=== PATIENT | female | born 1960 | race Caucasian/White ===

== ENCOUNTER → 2017-02-21 | Outpatient (CLI) | payer MEDICAID ==
--- NOTE | 2017-02-22 09:23 | MM ---
Reason for exam: screening (asymptomatic). Last mammogram was performed 2 years and 2 months ago. History: Patient is postmenopausal and is nulliparous. Benign US right guided VAD of the right breast, July 21, 2010. Took hormonal contraceptives for 7 years beginning at age 19. Physical Findings: A clinical breast exam by your physician is recommended on an annual basis and results should be correlated with mammographic findings. MG 3D Screening Mammo W/Cad Bilateral CC and MLO view(s) were taken. Prior study comparison: December 31, 2014, bilateral MG 3d screening mammo w/cad. October 05, 2013, bilateral MG screening mammo w CAD. The breast tissue is heterogeneously dense. This may lower the sensitivity of mammography. There is no discrete abnormality. No significant changes when compared with prior studies. ASSESSMENT: Negative, BI-RAD 1 RECOMMENDATION: Routine screening mammogram of both breasts in 1 year.
== END | disposition home or self-care (01) ==
LOC: RADMAMWWP 07:35
PROVIDERS: ATTEND Family Medicine
DX: Z12.31 Encounter for screening mammogram for malignant neoplasm of breast (principal)
CPT/HCPCS: 77063; 77067

== ENCOUNTER → 2018-11-22 | Outpatient (CLI) | payer MEDICAID ==
--- NOTE | 2018-11-22 09:48 | MM ---
Reason for exam: additional evaluation requested from prior study. Last mammogram was performed 1 year and 9 months ago. History: Patient is postmenopausal and is nulliparous. Benign US right guided VAD of the right breast, July 21, 2010. Took hormonal contraceptives for 7 years beginning at age 19. Physical Findings: Nurse did not find any significant physical abnormalities on exam. MG Diagnostic Mammo w CAD [place] Bilateral CC and MLO view(s) were taken. Prior study comparison: February 21, 2017, bilateral MG 3d screening mammo w/cad. December 31, 2014, bilateral MG 3d screening mammo w/cad. The breast tissue is heterogeneously dense. This may lower the sensitivity of mammography. Previous mammotome biopsy in the right breast. No significant new findings when compared with previous films. These results were verbally communicated with the patient and result sheet given to the patient on 11/22/18. ASSESSMENT: Benign, BI-RAD 2 RECOMMENDATION: Routine screening mammogram of both breasts in 1 year. Manage on a clinical basis with regard to pain/palpable.
[2018-11-22 10:00] LABS: Basophils # (A) 0.1 k/uL (0-0.2); Basophils % (A) 1 %; Eosinophils # (A) 0.3 k/uL (0-0.7); Eosinophils % (A) 5 %; HCT 48.9 % (34.0-46.0); HGB 15.5 gm/dL (11.4-16.0); Lymphocytes # (A) 1.7 k/uL (1.0-4.8); Lymphocytes % (A) 28 %; MCH 29.4 pg (25.0-35.0); MCHC 31.6 g/dL (31.0-37.0); MCV 92.9 fL (80.0-100.0); Mean Platelet Volume 8.3; Monocytes # (A) 0.3 k/uL (0-1.0); Monocytes % (A) 6 %; Neutrophils # (A) 3.6 k/uL (1.3-7.7); Neutrophils % (A) 59 %; Platelet Count 232 k/uL (150-450); RBC 5.26 m/uL (3.80-5.40); RDW 13.4 % (11.5-15.5); WBC 6.1 k/uL (3.8-10.6)
[2018-11-22 10:09] LABS: ALT 30 U/L (9-52); AST 21 U/L (14-36); African American GFR (CKD) >90 (>60 ml/min/1.73 sqM); Albumin 4.4 g/dL (3.5-5.0); Alkaline Phosphatase 82 U/L (38-126); Anion Gap 7 mmol/L; Blood Urea Nitrogen 16 mg/dL (7-17); Calcium 9.9 mg/dL (8.4-10.2); Carbon Dioxide 29 mmol/L (22-30); Chloride 105 mmol/L (98-107); Cholesterol 213 mg/dL (<200); Glucose 102 mg/dL (74-99); HDL Cholesterol 63 mg/dL (40-60); LDL Cholesterol,Calculated 136 mg/dL (0-99); Non-African American GFR(CKD) 90 (>60 ml/min/1.73 sqM); Sodium 141 mmol/L (137-145); Total Bilirubin 0.4 mg/dL (0.2-1.3); Total Protein 7.4 g/dL (6.3-8.2); Triglycerides 69 mg/dL (<150)
[2018-11-22 10:26] LABS: T4, Free (Free Thyroxine) 0.95 ng/dL (0.78-2.19)
== END | disposition home or self-care (01) ==
LOC: RADMAMWWP 08:09
PROVIDERS: ATTEND Family Medicine
DX: N63.10 Unspecified lump in the right breast, unspecified quadrant (principal); N63.20 Unspecified lump in the left breast, unspecified quadrant; N64.4 Mastodynia; E78.00 Pure hypercholesterolemia, unspecified; Z00.00 Encounter for general adult medical examination without abnormal findings
CPT/HCPCS: 77066; 80053; 80061; 84439; 84443; 85025

== ENCOUNTER → 2018-12-06 | Outpatient (CLI) | payer MEDICAID ==
--- NOTE | 2018-12-06 15:50 | CTL ---
EXAMINATION TYPE: CT Low Dose Lung DATE OF EXAM ORDERED: 12/06/2018 HISTORY: Personal history of tobacco use. Lung cancer screening CT DLP: 54.[address] CTDI: 1.5 mGy Automated exposure control for dose reduction was used. SCREENING VISIT: Initial COMPARISON: None TECHNIQUE: Low dose computed tomography scan was performed through the chest at 1 mm thick sections a nd reconstructed images in the coronal plane at [address] DIAGNOSTIC QUALITY: Satisfactory FINDINGS: LUNG NODULES: None. LUNGS: COPD: Severity: Normal Fibrosis: Severity: Normal Lymph nodes: Normal Other findings: Normal RIGHT PLEURAL SPACE: Effusion: Normal Calcification: Normal Thickening: Normal Pneumothorax: Normal LEFT PLEURAL SPACE: Effusion: Normal Calcification: Normal Thickening: Normal Pneumothorax: Normal HEART: Heart Size: Normal Coronary calcification: None Pericardial effusion: None OTHER FINDINGS: Upper abdomen: Normal Bony thorax: Supraclavicular region: Normal Other: Ascending thoracic aorta at the level the main pulmonary artery measures 3.2 cm. The main pul monary artery at the bifurcation measures 2.3 cm. IMPRESSION: Negative CT screening chest FOLLOW UP CT CHEST RECOMMENDATION: Screening low-dose CT chest per protocol in [address] LUNG RAD: 1
== END | disposition home or self-care (01) ==
LOC: RADCTMAIN 15:00
PROVIDERS: ATTEND Family Medicine
DX: Z12.2 Encounter for screening for malignant neoplasm of respiratory organs (principal); Z87.891 Personal history of nicotine dependence

== ENCOUNTER → 2020-09-30 | Outpatient (CLI) | payer MEDICAID ==
[2020-09-30 16:03] LABS: Basophils # (A) 0.05 X 10*3/uL (0.00-0.10); Basophils % (A) 0.9 %; Eosinophils % (A) 7.3 %; HCT 48.5 % (37.2-46.3); HGB 15.3 g/dL (12.0-15.0); Lymphocytes # (A) 1.48 X 10*3/uL (0.90-5.00); Lymphocytes % (A) 26.9 %; MCH 29.4 pg (27.0-32.0); MCHC 31.5 g/dL (32.0-37.0); MCV 93.3 fL (80.0-97.0); Mean Platelet Volume 11.9 fL (9.5-12.2); Monocytes # (A) 0.55 X 10*3/uL (0.20-1.00); Neutrophils % (A) 54.5 %; Platelet Count 267 X 10*3/uL (140-440); RDW 13.5 % (11.5-14.5)
[2020-09-30 20:12] LABS: African American GFR (CKD) 94.2 (60.0-200.0); Albumin 4.4 g/dL (3.80-4.90); Albumin/Globulin Ratio 1.83 (1.60-3.17); Anion Gap 8.7 mmol/L (4.00-12.00); BUN/Creat Ratio 18.75 Ratio (12.00-20.00); Calcium 9.5 mg/dL (8.7-10.3); Carbon Dioxide 25.3 mmol/L (21.6-31.8); Chol/HDL Ratio 4.09; Globulin 2.4 g/dL (1.6-3.3); Magnesium 1.8 mg/dL (1.5-2.4); Non-African American GFR(CKD) 81.3 (60.0-200.0); Potassium 4.5 mmol/L (3.5-5.5); Total Bilirubin 0.4 mg/dL (0.3-1.2); Total Protein 6.8 g/dL (6.2-8.2)
[2020-09-30 20:22] LABS: T4, Free (Free Thyroxine) 0.7 ng/dL (0.80-1.80)
== END | disposition home or self-care (01) ==
LOC: LABWHC1 09:39
PROVIDERS: ATTEND Nurse Practitioner Family
DX: Z00.00 Encounter for general adult medical examination without abnormal findings (principal); E55.9 Vitamin D deficiency, unspecified; Z87.891 Personal history of nicotine dependence
CPT/HCPCS: 36415; 80053; 80061; 82306; 83735; 84439; 84443; 85025

== ENCOUNTER → 2021-01-26 | Outpatient (CLI) | payer MEDICAID ==
--- NOTE | 2021-01-26 09:28 | MM ---
Reason for exam: screening (asymptomatic). Last mammogram was performed 2 years and 2 months ago. History: Patient is postmenopausal and is nulliparous. Benign US right guided VAD of the right breast, July 21, 2010. Took hormonal contraceptives for 7 years beginning at age 19. Physical Findings: A clinical breast exam by your physician is recommended on an annual basis and results should be correlated with mammographic findings. MG 3D Screening Mammo W/Cad Bilateral CC and MLO view(s) were taken. Prior study comparison: November 22, 2018, bilateral MG diagnostic mammo w CAD [place]. February 21, 2017, bilateral MG 3d screening mammo w/cad. The breast tissue is heterogeneously dense. This may lower the sensitivity of mammography. Previous mammotome biopsy in the right breast. There is no discrete abnormality. ASSESSMENT: Benign, BI-RAD 2 RECOMMENDATION: Routine screening mammogram of both breasts in 1 year.
== END | disposition home or self-care (01) ==
LOC: RADMAMWWP 07:12
PROVIDERS: ATTEND Obstetrics & Gynecology
DX: Z12.31 Encounter for screening mammogram for malignant neoplasm of breast (principal); Z78.0 Asymptomatic menopausal state
CPT/HCPCS: 77063; 77067

== ENCOUNTER → 2021-01-27 | Outpatient (CLI) | payer MEDICAID, OTHER | END | disposition home or self-care (01) | LOC: LABWHC1 08:53 | PROVIDERS: ATTEND Emergency Medicine | DX: Z20.822 Contact with and (suspected) exposure to COVID-19 (principal) | CPT/HCPCS: 87635 ==

== ENCOUNTER → 2021-01-28 | Outpatient (CLI) | payer MEDICAID, OTHER | END | disposition home or self-care (01) | LOC: LABWHC1 08:59 | PROVIDERS: ATTEND Emergency Medicine | DX: Z20.822 Contact with and (suspected) exposure to COVID-19 (principal) | CPT/HCPCS: 87635 ==

== ENCOUNTER → 2021-02-07 | Outpatient (CLI) | payer MEDICAID, OTHER | END | disposition home or self-care (01) | LOC: LABWHC1 15:26 | PROVIDERS: ATTEND Emergency Medicine | DX: U07.1 COVID-19 (principal) | CPT/HCPCS: 87635 ==

== ENCOUNTER 2021-02-17 08:29 | Day surgery (SDC) | payer MEDICAID ==
[2021-02-12 15:01] VITALS: BMI 20.3
[~2021-02-17 08:29] MED LIST: LACTATED RINGERS 1,000 ML IV SCH; LIDOCAINE 1% (10MG/ML) FOR IV START INTRADERMA PRN
[2021-02-17 08:44] VITALS: TEMP 97.9
[2021-02-17] MEDS ORDERED: LACTATED RINGERS 1,000 ML IV ONE (08:51)
[2021-02-17] MEDS ORDERED: LIDOCAINE 1% INJ 10MG/ML (20 ML MDV) ONE (09:14)
[2021-02-17] MEDS ORDERED: PROPOFOL 10 MG/ML 20 ML VIAL IV ONE (09:14)
--- NOTE | 2021-02-17 09:18 | P.GSHP ---
History of Present Illness H&P Date: 02/17/21 Chief Complaint: Colon cancer screening 60-year-old female here today for colonoscopy. Last colonoscopy 5 years ago. No bowel complaints. No rectal bleeding. Family history of colon cancer in her mother and her maternal grandmother Past Medical History Past Medical History: GERD/Reflux, Osteoarthritis (OA) Additional Past Medical History / Comment(s): hemorrhoids History of Any Multi-Drug Resistant Organisms: None Reported Past Surgical History: Adenoidectomy, Tonsillectomy Additional Past Surgical History / Comment(s): 2008 uterine ablation, colonoscopy Past Anesthesia/Blood Transfusion Reactions: No Reported Reaction Past Psychological History: No Psychological Hx Reported Smoking Status: Former smoker Past Alcohol Use History: Rare Additional Past Alcohol Use History / Comment(s): quit smoking 1 1/2 years ago, hx of 1ppd, smoked off and on. Past Drug Use History: None Reported - Past Family History Father Family Medical History: COPD, Hearing Disorder / Deafness, Rheumatoid Arthritis (RA) Mother Family Medical History: Cancer, COPD, GERD/Reflux, Hyperlipidemia Additional Family Medical History / Comment(s): Colon CA Medications and Allergies Home Medications Medication Instructions Recorded Confirmed Type Cholecalciferol [Vitamin D3 (125 125 mcg PO DAILY 02/12/21 02/12/21 History Mcg = 5000 Iu)] Ibuprofen [Motrin Ib] 400 mg PO Q8H 02/12/21 02/12/21 History Allergies Allergy/AdvReac Type Severity Reaction Status Date / Time neomycin Allergy Rash/Hives Verified 02/12/21 14:54 Surgical - Exam Vital Signs Temp Pulse Resp BP Pulse Ox 97.9 F 78 18 132/74 98 02/17/21 08:43 02/17/21 08:43 02/17/21 08:43 02/17/21 08:43 02/17/21 08:43 Physical exam: General: Well-developed, well-nourished HEENT: Normocephalic, sclerae nonicteric Abdomen: Nontender, nondistended Extremities: No edema Neuro: Alert and oriented Assessment and Plan (1) Colon cancer screening Narrative/Plan: Will proceed with colonoscopy Current Visit: Yes Status: Acute Code(s): Z12.11 - ENCOUNTER FOR SCREENING FOR MALIGNANT NEOPLASM OF COLON SNOMED Code(s): 851241823
--- NOTE | 2021-02-17 09:34 | P.PCN ---
Date of Procedure: 02/17/21 Procedure(s) Performed: PREOPERATIVE DIAGNOSIS: Colon cancer screening, family history of colon cancer POSTOPERATIVE DIAGNOSIS: Normal exam PROCEDURE: Colonoscopy ANESTHESIA: MAC SURGEON: Adrian Yip M.D. SPECIMENS: None ENDOSCOPIC PROCEDURE: The patient was placed on the endoscopy table in the left decubitus position. The Olympus colonoscope was inserted into the anus and passed under direct visualization to the base of the cecum. The appendiceal orifice was visualized. From that point the scope was slowly withdrawn inspecting all surfaces carefully. There were no neoplastic inflammatory or polypoid lesions throughout the cecum, ascending, transverse, descending, sigmoid and rectum. There was no visible diverticulosis noted. Digital rectal examination was normal. The patient was taken to the recovery room in stable condition per anesthesia guidelines. RECOMMENDATIONS: Resume diet. Follow-up colonoscopy 5 years
[2021-02-17 10:02] VITALS: RESP 16
[2021-02-17 10:03] VITALS: BP 130/87; PULSE 60
== END 2021-02-17 10:30 | disposition home or self-care (01) ==
LOC: ORWHC2ENDO 08:29
PROVIDERS: ATTEND Surgery
DX: Z12.11 Encounter for screening for malignant neoplasm of colon (principal); Z80.0 Family history of malignant neoplasm of digestive organs; K21.9 Gastro-esophageal reflux disease without esophagitis; M19.90 Unspecified osteoarthritis, unspecified site; Z87.891 Personal history of nicotine dependence; Z88.1 Allergy status to other antibiotic agents; Z90.89 Acquired absence of other organs; Z90.49 Acquired absence of other specified parts of digestive tract; Z98.890 Other specified postprocedural states; Z82.5 Family history of asthma and other chronic lower respiratory diseases; Z82.61 Family history of arthritis; Z83.79 Family history of other diseases of the digestive system; Z83.438 Family history of other disorder of lipoprotein metabolism and other lipidemia
CPT/HCPCS: J2001; J2704; G0105; 45378

== ENCOUNTER → 2021-11-09 | Outpatient (CLI) | payer MEDICAID ==
[2021-11-09 15:56] LABS: Basophils # (A) 0.06 X 10*3/uL (0.00-0.10); Eosinophils # (A) 0.38 X 10*3/uL (0.04-0.35); Eosinophils % (A) 6.2 %; HCT 47.9 % (37.2-46.3); HGB 15.7 g/dL (12.0-15.0); Immature Grans, Automated 0.3 %; Lymphocytes # (A) 1.51 X 10*3/uL (0.90-5.00); Lymphocytes % (A) 24.7 %; MCH 30.4 pg (27.0-32.0); MCHC 32.8 g/dL (32.0-37.0); MCV 92.8 fL (80.0-97.0); Mean Platelet Volume 12.1 fL (9.5-12.2); Monocytes # (A) 0.46 X 10*3/uL (0.20-1.00); Monocytes % (A) 7.5 %; NRBC Per 100 WBC 0 /100 WBCS (0.0-0.0); Neutrophils # (A) 3.68 X 10*3/uL (1.80-7.70); Neutrophils % (A) 60.3 %; Platelet Count 248 X 10*3/uL (140-440); RBC 5.16 X 10*6/uL (4.10-5.20); RDW 13.8 % (11.5-14.5); WBC 6.11 X 10*3/uL (4.50-10.00)
[2021-11-09 16:20] LABS: ALT 20 U/L (8-44); AST 21 U/L (13-35); Albumin 4.4 g/dL (3.8-4.9); Albumin/Globulin Ratio 1.79 (1.60-3.17); Alkaline Phosphatase 91 U/L (41-126); Blood Urea Nitrogen 10.6 mg/dL (9.0-27.0); Calcium 9.5 mg/dL (8.7-10.3); Carbon Dioxide 25.4 mmol/L (20.0-27.5); Chloride 104 mmol/L (96-109); Chol/HDL Ratio 4.07 Ratio; Globulin 2.5 g/dL (1.6-3.3); Glucose 89 mg/dL (70-110); LDL Cholesterol,Calculated 145.1 mg/dL (0.0-131.0); Non-African American GFR(CKD) 92.3 (60.0-200.0); Potassium 4.2 mmol/L (3.5-5.5); Sodium 140 mmol/L (135-145); Total Protein 6.8 g/dL (6.2-8.2)
== END | disposition home or self-care (01) ==
LOC: LABWHC1 07:52
PROVIDERS: ATTEND Nurse Practitioner Family
DX: Z00.00 Encounter for general adult medical examination without abnormal findings (principal); K59.04 Chronic idiopathic constipation; F17.200 Nicotine dependence, unspecified, uncomplicated; Z82.49 Family history of ischemic heart disease and other diseases of the circulatory system; R22.1 Localized swelling, mass and lump, neck; E55.9 Vitamin D deficiency, unspecified
CPT/HCPCS: 36415; 80053; 80061; 82306; 84439; 84443; 85025; 93005

== ENCOUNTER → 2021-11-24 | Outpatient (CLI) | payer MEDICAID ==
--- NOTE | 2021-11-24 14:44 | US ---
EXAMINATION TYPE: US st tissue head/neck DATE OF EXAM: 11/24/2021 COMPARISON: 12/26/2014 CLINICAL HISTORY: 61-year-old female R22.1 Lump in neck. Patient feels swelling/palpable just superio r to gutierrez apple. TECHNIQUE: Plastic And Reconstructive Surgeon notes: Scanning was performed over upper neck where patient feels swelling nadeem und gutierrez apple. Imaging was also performed slightly lateral in the submandibular space. Additional s deborah was performed inferiorly over thyroid area. FINDINGS: Plastic And Reconstructive Surgeon notes: No definite abnormality noted at any of these locations. IMPRESSION: Scanning targeted to the patient's palpable site, anterior neck just above and around the anterosepta l, and the submandibular space bilaterally, and inferior thyroid gland area. No discrete sonographic abnormality of the superficial soft tissues is identified. Further clinical follow-up recommended. If any persisting or enlarging palpable abnormality, consider contrast-enhanced CT of the neck.
== END | disposition home or self-care (01) ==
LOC: RADUSWWP 12:12
PROVIDERS: ATTEND Family Medicine
DX: R22.1 Localized swelling, mass and lump, neck (principal)
CPT/HCPCS: 76536

== ENCOUNTER → 2022-01-27 | Outpatient (CLI) | payer MEDICAID ==
--- NOTE | 2022-01-27 18:24 | MM ---
Reason for Exam: Screening (asymptomatic). Last screening mammogram was performed 12 month(s) ago. Patient History: Menarche at age 15. Patient has no children. Postmenopausal. Hormonal Contraceptives for 7 years from age 19 until age 27. 07/21/2010, Benign Core Biopsy on the right side. Risk Values: Margo 5 year model risk: 1.8%. NCI Lifetime model risk: 9.8%. Prior Study Comparison: 02/21/2017 Bilateral Screening Mammogram, [facility]. 11/22/2018 Bilateral Diagnostic Mammogram, [facility]. 01/26/2021 Bilateral Screening Mammogram, [facility]. Tissue Density: The breast tissue is extremely dense which could obscure a lesion on mammography. Findings: Analyzed By CAD. There is symmetrical and stable. Core markers within the right breast. No suspicious groups of microcalcifications, spiculated or lobular masses, architectural distortion or other secondary signs of malignancy are mammographically apparent. Overall Assessment: Benign, BI-RAD 2 Management: Screening Mammogram of both breasts in 1 year. A negative mammogram report should not preclude additional follow up of suspicious palpable abnormalities. Patient should continue monthly self breast exam. A clinical breast exam by your physician is recommended on an annual basis and results should be correlated with mammographic findings. Electronically signed and approved by: Antonio Augustine D.O. Radiologis
== END | disposition home or self-care (01) ==
LOC: RADMAMWWP 07:24
PROVIDERS: ATTEND Family Medicine
DX: Z12.31 Encounter for screening mammogram for malignant neoplasm of breast (principal); Z78.0 Asymptomatic menopausal state
CPT/HCPCS: 77063; 77067

== ENCOUNTER → 2022-06-28 | Outpatient (CLI) | payer MEDICAID ==
--- NOTE | 2022-06-28 08:52 | CT ---
EXAMINATION TYPE: CT soft tissue neck w con DATE OF EXAM: 06/28/2022 COMPARISON: None HISTORY: pt states that she feel that there is something stuck in her throat h/o tobacco use CT DLP: 394 mGycm CONTRAST: CT scan of the neck is performed with IV Contrast, patient injected with 100 mL of Isovue 300. Contrast enhanced CT of the neck was performed from the skull base through the lung apices. AIRWAY: The supraglottic, glottic, and subglottic portions of the airway appear patent and free of mass. SALIVARY GLANDS: The submandibular and parotid glands are free of mass or inflammatory process. THYROID GLAND: No nodules or masses seen. LYMPH NODES: No adenopathy seen greater than 1cm. LUNG APICES: No nodule or mass is seen. OTHER: Vascular structures are patent. No significant degenerative change of the cervical spine. N o abscess seen. There is mild ethmoidal and sphenoid chronic sinusitis. IMPRESSION: No significant abnormality seen to account for the patient's symptoms.
== END | disposition home or self-care (01) ==
LOC: RADCTMAIN 07:28
PROVIDERS: ATTEND Otolaryngology
DX: F45.8 Other somatoform disorders (principal)
CPT/HCPCS: 70491; Q9967

== ENCOUNTER → 2022-08-03 | Outpatient (CLI) | payer MEDICAID ==
[2022-08-03 15:44] LABS: Chol/HDL Ratio 2.72 Ratio; LDL Cholesterol,Calculated 103.2 mg/dL (0.0-131.0); VLDL Calculation 16.42 mg/dL (5.00-40.00)
== END | disposition home or self-care (01) ==
LOC: LABWHC1 08:41
PROVIDERS: ATTEND Family Medicine
DX: E78.00 Pure hypercholesterolemia, unspecified (principal)
CPT/HCPCS: 36415; 80061

== ENCOUNTER → 2023-01-11 | Outpatient (CLI) | payer MEDICAID ==
--- NOTE | 2023-01-11 08:49 | US ---
EXAMINATION TYPE: US transvaginal DATE OF EXAM: 01/11/2023 COMPARISON: NONE CLINICAL INDICATION: Female, 62 years old with history of R10.2 PELVIC PAIN; Dull pain left pelvis x 3 months. Hx ablation 10 years ago. No bleeding. G0. TECHNIQUE: Transvaginal (TV). Date of LMP: At time of ablation 10 years ago. EXAM MEASUREMENTS: Uterus: 5.9 x 4.3 x 2.0 cm Endometrial Stripe: 0.32 cm Right Ovary: Not seen Left Ovary: Not seen 1. Uterus: Anteverted. Mild heterogeneity to the myometrium. * Hypoechoic area seen posterior uterine body: 0.6 x 0.5 x 0.4 cm. This appears to be separate from t he endometrium/uterine cavity. *Small 2 mm endometrial calcification along the lower uterine segment 2. Endometrium: 0.32 cm 3. Right Ovary: Not seen 4. Left Ovary: Not seen Nonvisualization of the ovaries probably due to small postmenopausal state. 5. Bilateral Adnexa: Appears wnl 6. Posterior cul-de-sac: Appears wnl IMPRESSION: 1. Thickened endometrial stripe at 3.2 mm. 2. A 6 mm hypoechoic area in the mid posterior uterine body. Findings suspected to represent a small intramural fibroid. 3. Punctate 2 mm calcification along the endometrium lower uterine segment may be a product of prior infection or instrumentation. 4. Unable to visualize either ovary.
== END | disposition home or self-care (01) ==
LOC: RADUSWWP 07:33
PROVIDERS: ATTEND Obstetrics & Gynecology
DX: R10.2 Pelvic and perineal pain (principal); N85.8 Other specified noninflammatory disorders of uterus
CPT/HCPCS: 76830

== ENCOUNTER → 2023-02-14 | Outpatient (CLI) | payer MEDICAID ==
--- NOTE | 2023-02-14 17:36 | MM ---
Reason for Exam: Screening (asymptomatic). Last mammogram was performed 1 year(s) and 1 month(s) ago. Patient History: Menarche at age 15. Patient has no children. Postmenopausal. Hormonal Contraceptives for 7 years from age 19 until age 27. 07/21/2010, Benign Core Biopsy on the right side. Risk Values: Margo 5 year model risk: 1.9%. NCI Lifetime model risk: 9.5%. Prior Study Comparison: 11/22/2018 Bilateral Diagnostic Mammogram, [facility]. 01/26/2021 Bilateral Screening Mammogram, [facility]. 01/27/2022 Bilateral MG 3D screening mammo w/cad, [facility]. Tissue Density: The breast tissue is heterogeneously dense. This may lower the sensitivity of mammography. Findings: Analyzed By CAD. Microclip right breast from prior biopsy. There is no suspicious group of microcalcifications or new suspicious mass in either breast. Overall Assessment: Negative, BI-RAD 1 Management: Screening Mammogram of both breasts in 1 year. . Patient should continue monthly self-breast exams. A clinical breast exam by your physician is recommended on an annual basis. This exam should not preclude additional follow-up of suspicious palpable abnormalities. Note on Margo scores and lifetime risk: 1. A Margo score greater than 3% is considered moderate risk. If this is the case, consider specialist referral to assess eligibility for a risk reducing agent. 2. If overall lifetime risk for the development of breast cancer is 20% or higher, the patient may qualify for future screening with alternating mammogram and breast MRI. Electronically signed and approved by: Rocky Albrecht M.D. Radiologist
== END | disposition home or self-care (01) ==
LOC: RADMAMWWP 09:40
PROVIDERS: ATTEND Obstetrics & Gynecology
DX: Z12.31 Encounter for screening mammogram for malignant neoplasm of breast (principal); Z78.0 Asymptomatic menopausal state
CPT/HCPCS: 77063; 77067

== ENCOUNTER → 2023-05-27 | Outpatient (CLI) | payer MEDICAID ==
[2023-05-27 16:30] LABS: Basophils # (A) 0.06 X 10*3/uL (0.00-0.10); Eosinophils % (A) 6.7 %; HGB 15.3 g/dL (12.0-15.0); Lymphocytes # (A) 1.78 X 10*3/uL (0.90-5.00); Lymphocytes % (A) 29.8 %; MCH 30.3 pg (27.0-32.0); MCHC 32.6 g/dL (32.0-37.0); MCV 93.1 FL (80.0-97.0); Mean Platelet Volume 12.1 FL (9.5-12.2); Monocytes # (A) 0.51 X 10*3/uL (0.20-1.00); Monocytes % (A) 8.5 %; NRBC Per 100 WBC 0 X 10*3/uL (0.00-0.01); Neutrophils # (A) 3.21 X 10*3/uL (1.80-7.70); Neutrophils % (A) 53.7 %; Platelet Count 248 X 10*3/uL (140-440); RBC 5.05 X 10*6/uL (4.10-5.20); RDW 13.2 % (11.5-14.5); WBC 5.98 X 10*3/uL (4.50-10.00)
[2023-05-27 16:47] LABS: ALT 19 U/L (8-44); AST 22 U/L (13-35); Albumin 4.6 g/dL (3.8-4.9); Albumin/Globulin Ratio 1.84 Ratio (1.60-3.17); Alkaline Phosphatase 105 U/L (41-126); BUN/Creat Ratio 19.71 Ratio (12.00-20.00); Blood Urea Nitrogen 13.8 mg/dL (9.0-27.0); Calcium 9.9 mg/dL (8.7-10.3); Carbon Dioxide 23.1 mmol/L (21.6-31.8); Chloride 103 mmol/L (96-109); Chol/HDL Ratio 3.76 Ratio; Globulin 2.5 g/dL (1.6-3.3); Glucose 92 mg/dL (70-110); LDL Cholesterol,Calculated 141.5 mg/dL (0.0-131.0); Potassium 4.3 mmol/L (3.5-5.5); Sodium 140 mmol/L (135-145); Total Bilirubin 0.3 mg/dL (0.3-1.2); Total Protein 7.1 g/dL (6.2-8.2)
== END | disposition home or self-care (01) ==
LOC: LABWHC1 09:12
PROVIDERS: ATTEND Family Medicine
DX: Z00.00 Encounter for general adult medical examination without abnormal findings (principal); E78.00 Pure hypercholesterolemia, unspecified
CPT/HCPCS: 36415; 80053; 80061; 84439; 84443; 85025

== ENCOUNTER → 2024-02-24 | Day surgery (SDC) | payer MEDICAID ==
[~2024-02-24] MED LIST changes: +GLYCOPYRROLATE 0.2 MG/ML 2 ML VIAL ONE; +HYDROmorphone 0.5 MG/0.5 ML SYRINGE IVP PRN; -LACTATED RINGERS 1,000 ML IV SCH; -LIDOCAINE 1% (10MG/ML) FOR IV START INTRADERMA PRN; +LIDOCAINE 1% INJ 10MG/ML (20 ML MDV) ONE; +MIDAZOLAM 2 MG/2 ML VIAL IV PRN; +MIDAZOLAM 2 MG/2 ML VIAL ONE; +PROPOFOL 10 MG/ML 20 ML VIAL IV ONE; +Pre Op ABX Message 1 EACH MISC MISCELLANE ONE; +SCOPOLAMINE 1 MG/72 HR PATCH TRANSDERM ONE; +SUCCINYLCHOLINE CHLORIDE 200 MG/10 ML VIAL IV ONE; +fentaNYL (PF) 50 MCG/ML 2 ML AMP ONE
[2024-02-24] MEDS: IV FLUID CONTINUATION 1,000 ML IV ONE ×2 (08:00→09:26)
[2024-02-24] MEDS: LACTATED RINGERS 1,000 ML IV SCH (08:21)
[2024-02-24] MEDS: ONDANSETRON 4 MG/2 ML VIAL IVP ONE (08:25)
[2024-02-24] MEDS: DEXAMETHASONE SOD PHOSPHATE 4 MG/ML 1 ML VIAL IV ONE (08:25)
[2024-02-24] MEDS: FAMOTIDINE 20 MG/2 ML VIAL IV STA (08:56)
[2024-02-24] MEDS: SODIUM CHLORIDE 0.9% 50 ML with ceFAZolin 2,000 MG IV ONE (09:29)
[2024-02-24] MEDS: ceFAZolin 1,000 MG in SODIUM CHLORIDE 0.9% 1,000 ML IRRIGATION ONE (09:29)
[2024-02-24] MEDS: BUPIVACAINE (PF) 0.5% 30 ML VIAL SQ ONE (09:46)
[2024-02-24 10:51] VITALS: TEMP 97
--- NOTE | 2024-02-24 10:58 | P.OP ---
Date of Procedure: 02/24/24 Preoperative Diagnosis: Hallux valgus left foot Postoperative Diagnosis: Hallux valgus left foot Procedure(s) Performed: Bunionectomy by double osteotomy left foot Implants: Arthrex 4.0 mm MIS bunion screw Arthrex 3.5 mm MIS bunion screws x 2 Anesthesia: GETA Surgeon: Rod Garay Estimated Blood Loss (ml): 2 Pathology: none sent Condition: stable Disposition: PACU Description of Procedure: The patient was brought into the op room and placed on the table in the supine position. Timeout was taken to confirm correct patient identifiers, correct laterality of surgery, and correct procedure. When all staff in the room was in agreement with the timeout, the patient was induced and placed under general anesthesia. A well-padded tourniquet was placed on the left calf and 20 mL of 0.25% Marcaine was injected as a foot block. The foot was then prepped and draped in the usual manner. The left was exsanguinated and the tourniquet inflated to 250 mmHg. Utilizing fluoroscopy, a metallic marker was used to daniel the first tarsometatarsal joint the flare near the head of the first metatarsal head in the center point of the first metatarsal head on the medial aspect. A small stab incision was made in the area of the osteotomy at the flare of the first metatarsal head. The bur was inserted and advanced medial to lateral perpendicular to the long axis of the first metatarsal. In a sweeping motion a dorsal to plantar osteotomy was performed. Distraction of the great toe was utilized to make sure that the osteotomy was completed. A hemostat was inserted into the medullary canal of first metatarsal and used to shift the first metatarsal head laterally. Then the shifting device was inserted into the medullary canal of the first metatarsal and used to shift the first metatarsal head until it was corrected. A guidewire was placed through the shifting device into the first metatarsal head. Once the correction was dialed in the a wire was advanced into the second metatarsal to maintain the fixation. Fluoroscopic imaging showed full correction of the intermetatarsal angle. A guidewire for a 4.0 mm MIS bunion screw was placed at the medial base of the first metatarsal and advanced centrally into the medullary canal and stopped at the lateral cortex. Sagittal view show that it was centrally located in the first metatarsal. The wire was advanced through the lateral cortex of the first metatarsal which was at least 1 cm proximal to the osteotomy. The wire was advanced until it engaged the first metatarsal head. Fluoroscopic imaging showed the proper placement of this initial wire. The 30 degree parallel guide was placed over the initial wire. A second wire was placed to holes from the initial wire. It was advanced by hand to the medial cortex of the first metatarsal where fluoroscopy was used to make sure the trajectory was correct. Then the wire was advanced under power through the first metatarsal into the first metatarsal head. Fluoroscopy confirmed the proper alignment the wire on the AP and lateral views. The initial wire was then advanced to the plantar skin of the foot with the great toe dorsiflexed and a hemostat was applied to it so would not lose fixation with drilling. The wire was measured for proper screw length and then drilling was performed in the metatarsal head. A 4.0 mm beveled head MIS bunion screw was inserted and advanced until the bevel was parallel and flush with the medial cortex of the first metatarsal. Fluoroscopy confirmed the proper alignment of the screw on AP and lateral views. The same process was done for the second wire with a 3.5 millimeter screw. Final fluoroscopic imaging showed proper placement the hardware as well as full and maintained correction of the first metatarsal. Then attention was directed over the medial aspect of the proximal phalanx where a small stab incision was made through the skin and elevator to free the dorsal soft tissue on the proximal phalanx. 2 mm cutting bur was then inserted to the medial cortex and advanced to the lateral cortex but did not penetrate the lateral cortex. A sweeping motion dorsally and plantarly was done to create the Thayer osteotomy. Once completed the osteotomy was reduced and visually checked for correction. Once adequate correction was obtained guidewire for a 3.5 mm bevel head screw was inserted at the medial base of the proximal phalanx and advanced distal and lateral across the osteotomy. Drilling was performed and then a 3.5 mm double head screw was inserted until the screw was flush with the medial base of the proximal phalanx. Final fluoroscopic imaging showed full correction of all deformity and proper placement of all hardware. 4.3 mm wedge bur was inserted through the distal screw incision and used to resect the cortical shelf on the medial side of the first metatarsal. Once completed all wounds were thoroughly irrigated with antibiotic saline. Skin closure done with 3-0 nylon. Jumpstart dressing is placed over the incisions and a dry sterile dressing was applied to the foot. The tourniquet was released and capillary refill returned all digits on the foot. Patient tolerated above procedure and anesthesia well went to recovery with vital signs stable.
[2024-02-24 12:06] VITALS: BP 135/77; PULSE 68; RESP 14
== END | disposition home or self-care (01) ==
LOC: OR 07:44
PROVIDERS: ATTEND Podiatrist
DX: M20.12 Hallux valgus (acquired), left foot (principal); E78.5 Hyperlipidemia, unspecified; J45.909 Unspecified asthma, uncomplicated; K21.9 Gastro-esophageal reflux disease without esophagitis; Z87.891 Personal history of nicotine dependence; Z88.1 Allergy status to other antibiotic agents; Z79.899 Other long term (current) drug therapy
CPT/HCPCS: 28299; J1100; J2405; J0690; J3490; J0665

== ENCOUNTER → 2024-05-24 | Outpatient (CLI) | payer MEDICAID ==
--- NOTE | 2024-05-24 07:18 | MM ---
Reason for Exam: Screening (asymptomatic). Last mammogram was performed 1 year(s) and 3 month(s) ago. Patient History: Menarche at age 15. Patient has no children. Postmenopausal. Hormonal Contraceptives for 7 years from age 19 until age 27. 07/21/2010, Benign Core Biopsy on the right side. Risk Values: Margo 5 year model risk: 1.9%. NCI Lifetime model risk: 9.3%. Prior Study Comparison: 02/21/2017 Bilateral Screening Mammogram, [facility]. 11/22/2018 Bilateral Diagnostic Mammogram, [facility]. 01/26/2021 Bilateral Screening Mammogram, [facility]. 01/27/2022 Bilateral MG 3D screening mammo w/cad, [facility]. 02/14/2023 Bilateral MG 3D screening mammo w/cad, [facility]. Tissue Density: The breasts are heterogeneously dense, which may obscure small masses. Findings: Analyzed By CAD. There is no suspicious group of microcalcifications or new suspicious mass in either breast. Overall Assessment: Benign, BI-RAD 2 Management: Screening Mammogram of both breasts in 1 year. . Patient should continue monthly self-breast exams. A clinical breast exam by your physician is recommended on an annual basis. This exam should not preclude additional follow-up of suspicious palpable abnormalities. Note on Margo scores and lifetime risk: 1. A Margo score greater than 3% is considered moderate risk. If this is the case, consider specialist referral to assess eligibility for a risk reducing agent. 2. If overall lifetime risk for the development of breast cancer is 20% or higher, the patient may qualify for future screening with alternating mammogram and breast MRI. [facility], , 05/24/2024 7:16 AM. Electronically signed and approved by: Ricky Richards M.D. Radiologis
== END | disposition home or self-care (01) ==
LOC: RADMAMWWP 06:56
PROVIDERS: ATTEND Obstetrics & Gynecology
DX: Z12.31 Encounter for screening mammogram for malignant neoplasm of breast (principal); R92.333 Mammographic heterogeneous density, bilateral breasts; Z78.0 Asymptomatic menopausal state; Z92.0 Personal history of contraception
CPT/HCPCS: 77063; 77067